=== PATIENT | female | born 1965 | race Caucasian/White ===

== ENCOUNTER → 2024-08-02 07:54 | Outpatient (AMB) | payer OTHER, SELFPAY ==
--- NOTE | 2024-08-02 08:14 | MHC.PC.OV ---
Vital Signs 08/02/24 08:20 Height 5 ft 6 in Weight 140 lb 6 oz BMI 22.7 BP 118/68 Blood Pressure Location Lt brachial Position Sitting Respiration 14 Pulse 82 Pulse Source Pulse Oximeter Pulse Oximetry (%) 99 Oxygen Delivery Method Room Air Intake Visit Reasons: est bladder infection Intake Note: bladder infection since yesterday morning. Allergies penicillin G Allergy (Verified 08/02/24 08:18) Hives Tobacco use date assessed: 08/02/24 Dental Screening Dental Screen Date: 08/02/24 Did you have a dental visit in the last 12 months?: Yes Did you have a dental problem in the last 6 months where you did not have access to dental care?: No Was dental information given to patient?: Patient has dentist [facility] Social History Housing: House Patient Tobacco Use Status: Never used Tobacco e-Cigarette/Vaping Use: Never Used service: No Cognitive needs: No Hearing needs: No Vision needs: No Coding
[2024-08-02 08:20] VITALS: BP 118/68; PULSE 82; RESP 14; O2SAT 99; BMI 22.7
--- NOTE | 2024-08-02 08:29 | AM.OFFWIN_ITS ---
Intake Vital Signs 08/02/24 08:20 Height 5 ft 6 in Weight 140 lb 6 oz BMI 22.7 BP 118/68 Blood Pressure Location Lt brachial Position Sitting Respiration 14 Pulse 82 Pulse Source Pulse Oximeter Pulse Oximetry (%) 99 Oxygen Delivery Method Room Air Intake Visit Reasons: est bladder infection Allergies penicillin G Allergy (Verified 08/02/24 08:30) Hives Medication List - Last Reconciled 08/02/24 by Laury Pedroza, TILT TRAY DRIVER- hydrochlorothiazide 50 mg PO DAILY losartan 25 mg PO DAILY metoprolol succinate ER 200 mg PO DAILY HPI HPI Comments History of Present Illness Details 59 F here today with concern for urinary tract infection. Her symptoms of dysuria, foul smelling urine, dysuria, frequency started yesterday. Reports that she was traveling when her symptoms initially started. However she just tried to ignore them and treat with cranberry juice without effect. She reports that her last urinary tract infection with several years ago. Otherwise she denies any fever, chills, nausea, vomiting. Exam Awake alert oriented, no acute distress Mucous membranes moist Regular rate and rhythm No CVAT bilat Positive suprapubic tenderness Plan Treat with Bactrim b.i.d. for 3 days. Advised to take with food to quell GI side effects. Liberally hydrate. Okay to use [id number] remedies to help with the irritation. Educated on return to office recommendations. This note is constructed using voice recognition software. While every effort has been made to ensure accuracy in automobile upholstery trim installer, still errors may have been included Sometimes, these errors may affect the content or meaning of the given sentence . Total time spent caring for the patient today was 30 minutes. This includes time spent before the visit reviewing the chart, time spent during the visit, and time spent after the visit on documentation Physical Exam Vital Signs: Last Vital Signs Pulse 82 08/02/24 08:20 Resp 14 08/02/24 08:20 BP 118/68 08/02/24 08:20 Pulse Ox 99 08/02/24 08:20 Oxygen Delivery Method Room Air 08/02/24 08:20 BMI result Body Mass Index 22.7 Results AMB Urinalysis Dipstick UR Leukocytes Large Last Edit by Earline Jennings CMA on 08/02/24 14:42 UR Nitrite Positive Last Edit by Earline Jennings CMA on 08/02/24 14:42 UR Urobilinogen Normal Last Edit by Earline Jennings CMA on 08/02/24 14:42 UR Protein Trace Last Edit by Earline Jennings CMA on 08/02/24 14:42 UR Ph 7.5 Last Edit by Earline Jennings CMA on 08/02/24 14:42 UR Blood Small Last Edit by Earline Jennings CMA on 08/02/24 14:42 UR Specific [place] 1.015 Last Edit by Earline Jennings CMA on 08/02/24 14: 42 UR Ketone Last Edit by Earline Jennings CMA on 08/02/24 14:42 UR Bilirubin Negative Last Edit by Earline Jennings CMA on 08/02/24 14:42 UR Glucose Negative Last Edit by Earline Jennings CMA on 08/02/24 14:42 Results Reviewed Results Reviewed: Laboratory Last Values Urine pH (Clinic) 7.5 08/02/24 14:37 Specific [place] (Clinic) 1.015 08/02/24 14:37 Ur Protein (Clinic) Trace 08/02/24 14:37 Urine Blood (Clinic) Small 08/02/24 14:37 Urine Nitrite Positive 08/02/24 14:37 Urine Bilirubin (Clinic) Negative 08/02/24 14:37 Urobilinogen (Clinic) Normal 08/02/24 14:37 Leukocyte Esterase (Clinic) Large 08/02/24 14:37 Urine Glucose (Clinic) Negative 08/02/24 14:37 Assessment & Plan Assessment & Plan (1) UTI (urinary tract infection): Code(s): N39.0 - Urinary tract infection, site not specified Qualifiers: Urinary tract infection type: acute cystitis Hematuria presence: with hematuria Qualified Code(s): N30.01 - Acute cystitis with hematuria Plan: . Orders: Orders AMB Urinalysis Dipstick Today R30.0 - Dysuria Medications: New sulfamethoxazole-trimethoprim 800-160 mg (Bactrim DS) 1 tab PO BID 6 tabs 0RF 3 days Coding Level of Care Code Est Pt Level 4 (50746) Diagnoses Acute cystitis with hematuria N30.01 Urinary tract infection type: acute cystitis Hematuria presence: with hematuria
== END ==
PROVIDERS: PCP Physician Assistant; Visit Provider Nurse Practitioner Family
DX: R30.0 Dysuria (principal); N30.01 Acute cystitis with hematuria
CPT/HCPCS: 81002; 99214

== ENCOUNTER 2024-08-06 08:00 | Outpatient (AMB) | payer OTHER, SELFPAY ==
--- NOTE | 2024-08-06 08:03 | AM.OFFWIN_ITS ---
Intake Vital Signs 08/06/24 08:11 Height 5 ft 6 in Weight 139 lb 2 oz BMI 22.5 BP 105/67 Blood Pressure Location Rt brachial Position Sitting Respiration 14 Pulse 98 Pulse Source Pulse Oximeter Temp 97.3 F Temp Source Oral Pulse Oximetry (%) 98 Oxygen Delivery Method Room Air Intake Visit Reasons: est/ uti getting worse meds not helping Intake Note: patient complaining of burning and painful when urinating also complaining of constant pain in lower abd and states meds given to her last friday are not helping. Allergies penicillin G Allergy (Verified 08/06/24 08:10) Hives Medication List - Last Reconciled 08/06/24 by Laury Pedroza, TICKET MANAGER- hydrochlorothiazide 50 mg PO DAILY losartan 25 mg PO DAILY metoprolol succinate ER 200 mg PO DAILY Do you need a note to return to daycare/school/sports/work: No HPI HPI Comments History of Present Illness Details 59 F here today with concerns that her u rinary tract infection is not resolved. She was seen in the office 07/30/2024 by myself. She was found to have a UTI was treated with Bactrim for 3 days. She reports that in the 1st 2 days of treatment her symptoms improved. She completed the course of therapy. The very next day she developed a worsening of symptoms. She reports that she has a spasm, contraction like sensation in her bladder, severe right flank pain. She denies any gross hematuria. She denies a personal history of renal stones. She has been liberally hydrated and feels that her symptoms are improved when her bladder is full. However when she empties her bladder symptoms are worse. She denies any nausea vomiting or fever. Exam Awake alert oriented, tearful, uncomfortable, holding R flank Mucous membranes moist Regular rate and rhythm + CVAT right Positive suprapubic tenderness, gaurded Plan Urine done today and shows blood, otherwise unremarkable and improved. The concern is for a renal stone. Check stat ultrasound imaging. Treat prophylactically with Levaquin, Zofran, Flomax and oxycodone for pain control. Educated about the need for liberal hydration and risk for tendon rupture the use of Levaquin. Also educated her on the risks associated with opiate use. I recommend that she follow up with the primary care provider in a week or 2 to ensure resolution. I will call her later with the results of the ultrasound. Return to the office emergency room education provided to her today. Pt called at 1345 w/ results. Negative US. Plan as above. This note is constructed using voice recognition software. While every effort has been made to ensure accuracy in fuel retrofitting technician, still errors may have been included Sometimes, these errors may affect the content or meaning of the given sentence . Total time spent caring for the patient today was 40 minutes. This includes time spent before the visit reviewing the chart, time spent during the visit, and time spent after the visit on documentatio Physical Exam Vital Signs: Last Vital Signs Temp 97.3 F 08/06/24 08:11 Pulse 98 08/06/24 08:11 Resp 14 08/06/24 08:11 BP 105/67 08/06/24 08:11 Pulse Ox 98 08/06/24 08:11 Oxygen Delivery Method Room Air 08/06/24 08:11 BMI result Body Mass Index 22.5 Results Reviewed Results Reviewed: [place] [address] Ultrasound Report Signed Patient: Farhana Blanca MR#: [id number] : 1965 Acct:[id number] Age/Sex: 59 / F ADM Date: 08/06/24 Loc: HO.US Attending Dr: Laury DRIVER Ordering Physician: Laury Pedroza Date of Service: 08/06/24 Procedure(s): US retroperitoneal comp Accession Number(s): [id number] cc: Stormy Harman; Laury Pedroza~ EXAMINATION: US RETROPERITONEAL COMPLETE (RENAL) CLINICAL INFORMATION: Hematuria, back pain. COMPARISON: None available. TECHNIQUE: Real-time imaging of the kidneys and bladder. FINDINGS: RIGHT KIDNEY: 11.2 x 5.7 x 5.4 cm (SAG x AP x TRV). The kidney is normal in size, contour, and echogenicity. Renal cortical thickness is normal. No calculi or focal parenchymal lesions. No hydronephrosis. LEFT KIDNEY: 10.7 x 5.3 x 5 cm (SAG x AP x TRV). The kidney is normal in size, contour, and echogenicity. Renal cortical thickness is normal. No calculi or focal parenchymal lesions. No hydronephrosis. BLADDER: Well distended and normal. Bilateral ureteral jets are demonstrated. Prevoid bladder volume is 451 mL. Postvoid bladder volume is 45 mL. US/US retroperitoneal comp IMPRESSION: No acute sonographic abnormalities. Electronically signed by: Amaya Nolen MD 08/06/2024 11:46 AM EDT Dictated By: Amaya Nolen Signed By: <Electronically signed by Amaya Nolen in OV> 08/06/24 1146 DD/ 1030 TD/TT: 08/06/24 1050 Electric Welder: Assessment & Plan Assessment & Plan (1) Right flank pain: Comment: . Code(s): R10.9 - Unspecified abdominal pain (2) Hematuria: Code(s): R31.9 - Hematuria, unspecified Qualifiers: Hematuria type: other microscopic Qualified Code(s): R31.29 - Other microscopic hematuria Plan: . Plan . Orders: Orders US bladder Today M54.9 - Dorsalgia, unspecified, R10.819 - Abdominal tenderness, unspecified site, R31.9 - Hematuria, unspecified Medications: New tamsulosin (Flomax) IN THE EVENING 0.4 mg PO DAILY 14 caps 0RF levofloxacin 500 mg PO DAILY 7 tabs 0RF oxycodone Partial Fill upon patient request. 5 mg PO TID PRN 9 tabs 0RF pain ondansetron HCl 4 mg PO Q8H 3 days PRN 15 tabs 0RF nausea and vomiting Coding Level of Care Code Est Pt Level 5 (07452) Diagnoses Right flank pain R10.9 Other microscopic hematuria R31.29 Hematuria type: other microscopic
[2024-08-06 08:11] VITALS: BP 105/67; PULSE 98; RESP 14; TEMP 36.3; O2SAT 98; BMI 22.5
== END 2024-08-06 08:29 | disposition home or self-care (01) ==
PROVIDERS: PCP Physician Assistant; Visit Provider Nurse Practitioner Family
DX: N30.01 Acute cystitis with hematuria (principal); R10.9 Unspecified abdominal pain
CPT/HCPCS: 81002; 99215

== ENCOUNTER 2024-08-06 10:14 | Outpatient (REF) | payer OTHER, SELFPAY ==
--- NOTE | ~2024-08-06 | US_ITS ---
EXAMINATION: US RETROPERITONEAL COMPLETE (RENAL) CLINICAL INFORMATION: Hematuria, back pain. COMPARISON: None available. TECHNIQUE: Real-time imaging of the kidneys and bladder. FINDINGS: RIGHT KIDNEY: 11.2 x 5.7 x 5.4 cm (SAG x AP x TRV). The kidney is normal in size, contour, and echogenicity. Renal cortical thickness is normal. No calculi or focal parenchymal lesions. No hydronephrosis. LEFT KIDNEY: 10.7 x 5.3 x 5 cm (SAG x AP x TRV). The kidney is normal in size, contour, and echogenicity. Renal cortical thickness is normal. No calculi or focal parenchymal lesions. No hydronephrosis. BLADDER: Well distended and normal. Bilateral ureteral jets are demonstrated. Prevoid bladder volume is 451 mL. Postvoid bladder volume is 45 mL. US/US retroperitoneal comp IMPRESSION: No acute sonographic abnormalities. Electronically signed by: Amaya Nolen MD 08/06/2024 11:46 AM EDT
== END 2024-08-06 10:15 | disposition home or self-care (01) ==
LOC: HO.US 10:14
PROVIDERS: PCP Physician Assistant; Visit Provider Nurse Practitioner Family
DX: M54.9 Dorsalgia, unspecified (principal); R10.819 Abdominal tenderness, unspecified site; R31.9 Hematuria, unspecified
CPT/HCPCS: 76770

== ENCOUNTER 2024-08-25 08:55 | Outpatient (AMB) | payer OTHER, SELFPAY ==
--- NOTE | 2024-08-25 09:10 | MHC.PC.OV ---
Vital Signs 08/25/24 09:15 Height 5 ft 6 in Weight 140 lb 8 oz BMI 22.7 BP 108/70 Blood Pressure Location Lt brachial Position Sitting Respiration 12 Pulse 68 Pulse Source Pulse Oximeter Pulse Oximetry (%) 98 Oxygen Delivery Method Room Air Intake Visit Reasons: Establish care Intake Note: New patient visit Network Systems Engineer Required: No Allergies penicillin G Allergy (Verified 08/25/24 09:11) Hives Medication List - Last Reconciled 08/25/24 by Stormy Harman PA-C [Co qu 10 .Route.] hydrochlorothiazide 50 mg PO DAILY losartan 25 mg PO DAILY metoprolol succinate ER 200 mg PO DAILY multivitamin 1 tab PO DAILY [probiotic .] [Tumeric .] Tobacco use date assessed: 08/25/24 Dental Screening Dental Screen Date: 08/25/24 Did you have a dental visit in the last 12 months?: Yes Did you have a dental problem in the last 6 months where you did not have access to dental care?: No Was dental information given to patient?: Patient has dentist HPI Establish care HPI Details Patient is a 59-year-old female with a significant past medical history of tachycardia, hypertension recurrent diverticulitis presenting today to reestablcritical access hospital care. She was last seen by myself on 02/10/2024. -Recently seen for a complicated UTI. She ended up with possible early pyelonephritis and treated with levaquin. Currently asymptomatic. Feeling a lot better. She states that she thinks she got the UTI her intercourse. CV: Blood pressure today in the office is 108/70. She is currently on hydrochlorothiazide 50 mg, losartan 25 mg and metoprolol 200 mg. No chest pain, shortness on breath or palpitations. She was referred at our last visit to Cardiology for the palpitations. GI: She was supposed to see GI for reoccurrence of diverticulitis but states that they never called her. Since 2018 she has had 3 flare-ups of diverticulitis but has had a colonoscopy in which they told her she had no signs of diverticulosis. She states that she is not sure why she gets his recurrent left lower quadrant abdominal pain. She says every time she has gone to the ER for this they have told her she has diverticulitis and she has had imaging. Colonoscopy: Up-to-date Mammogram: Up-to-date, follows at [facility] Bone density: Never had Pap: UTD< Getting a colposcopy tomorrow. [facility] Medical History (Updated 08/25/24 @ 09:38 by Stormy Harman PA-C) Adenoma of right breast Adenoma of left breast Hypertriglyceridemia HTN (hypertension) Diverticulitis Anxiety Family History (Updated 08/25/24 @ 09:49 by Earline Jennings CMA) Mother Dementia Father Diabetes Sister Breast cancer Diabetes Paternal Grandfather Colon cancer Maternal Aunt Breast cancer Diabetes Social History (Updated 08/25/24 @ 09:23 by Earline Jennings CMA) Housing: House Patient Tobacco Use Status: Former Tobacco user Years Smoked: 1 e-Cigarette/Vaping Use: Never Used Second Hand Smoke Exposure: No service: No Current occupational status: retired Cognitive needs: No Hearing needs: No Vision needs: No Questionnaire PHQ-9 Over the last 2 weeks, how often have you been bothered by any of the following problems? 1. Little interest or pleasure in doing things: not at all 2. Feeling down, depressed, or hopeless: not at all 3. Trouble falling or staying asleep, or sleeping too much: not at all 4. Feeling tired or having little energy: not at all 5. Poor appetite or overeating: not at all 6. Feeling bad about yourself - or that you are a failure or have let yourself or your family down: not at all 7. Trouble concentrating on things, such as reading the newspaper or watching television: not at all 8. Moving or speaking so slowly that other people could have noticed. Or the opposite - being so fidgety or restless that you have been moving around a lot more than usual: not at all 9. Thoughts that you would be better off or of hurting yourself in some way: not at all Total score: 0 Depression Screening Interpretation: Negative Depression Screening Done: Yes 45233 - PHQ-9 Billing: Yes Source: Developed by Drs. Ronaldo Varela, Betty Argueta, Rhett Lino and colleagues, with an educational milla from [employer]. Thrive Questionnaire Date Thrive assessed: 08/25/24 I am a: Patient What is your living situation today?: I have a steady place to live Within the past 12 months, did the food you bought not last and you didn't have the money to get more?: Never true Within the past 12 months, did you worry whether your food would run out before you got money to buy more?: Never true Do you have trouble paying for medicines?: No Do you have trouble getting transportation to medical appointments?: No Do you have trouble paying your heating and electricity bill?: No Do you have trouble taking care of your child, family member or friend?: No Do you have trouble with day-to-day activities such as bathing, preparing meals, shopping, managing finances, etc.?: No Are you currently unemployed and looking for a job?: No Are you interested in more education?: No Please select the resources that you would like help with: None Currently or been in a relationship where the following occur: No concerns reported THRIVE Score: 0 AUDIT C Alcohol Use Questionnaire (AUDIT-C) 1. How often do you have a drink containing alcohol?: 2-4 times a month 2. How many drinks containing alcohol do you have on a typical day when you are drinking?: 1 or 2 3. How often do you have six or more drinks on one occasion?: Never Total Score: 2 ANGELA-7 AMB Questionnaire ANGELA-7 Date ANGLEA - 7 assessed: 08/25/24 Feeling nervous, anxious, or on edge: 0 = Not at all Not being able to stop or control worryin = Not at all Worrying too much about different things: 0 = Not at all Trouble relaxin = Not at all Being so restless that it is hard to sit still: 0 = Not at all Becoming easily annoyed or irritable: 0 = Not at all Feeling afraid as if something awful might happen: 0 = Not at all Total ANGELA-7 score (0-4 normal; 5-9 mild; 10-14 moderate; 15-21 severe): 0 Source: Developed by Drs. Ronaldo Varela, Betty Argueta, Rhett Lino and colleagues, with an educational milla from [employer]. ANGELA-7 Assessment Billing ANGELA-7 Assessment Tool: ANGELA-7 Assessment 37115 Physical exam (Primary Care) Vital Signs: Last Vital Signs Pulse 68 08/25/24 09:15 Resp 12 08/25/24 09:15 BP 108/70 08/25/24 09:15 Pulse Ox 98 08/25/24 09:15 Oxygen Delivery Method Room Air 08/25/24 09:15 BMI result Body Mass Index 22.7 Tobacco/Smoking Status: Tobacco use Status Tobacco use date assessed 08/25/24 08/25/24 09:19 e-Cigarette/Vaping Use Never Used 08/25/24 09:23 Depression Screening Interpretation: Negative Thrive Assessment: Date of Thrive Assessment Date Thrive assessed 08/18/24 08/25/24 09:19 Currently or been in a relationship where the following occur: No concerns reported Const Orientation/consciousness: patient oriented x3 HENMT Ears: hearing grossly normal bilaterally Neck Thyroid: Thyroid normal Lymphatic: no lymphadenopathy noted Resp Auscultation: clear to auscultation bilaterally Cardio Rate: regular rate Rhythm: regular rhythm Heart sounds: S1 normal heart sound present and S2 normal heart sound present GI Inspection: Yes normal to inspection Palpation (GI): Soft to palpation and Other GI palpation findings present (nontender, no cva tenderness) Auscultation: normoactive bowel sounds Rectal Exam - Female: deferred Skin General skin exam: no rashes or lesions noted Neuro General: patient oriented x3, gait normal and no focal motor deficits Results Reviewed Results Reviewed: [facility] Physician: Laury Pedroza Date of Service: 08/06/24 Procedure(s): US retroperitoneal comp Accession Number(s): [id number] cc: Stormy Harman; Laury Pedroza~ EXAMINATION: US RETROPERITONEAL COMPLETE (RENAL) CLINICAL INFORMATION: Hematuria, back pain. COMPARISON: None available. TECHNIQUE: Real-time imaging of the kidneys and bladder. FINDINGS: RIGHT KIDNEY: 11.2 x 5.7 x 5.4 cm (SAG x AP x TRV). The kidney is normal in size, contour, and echogenicity. Renal cortical thickness is normal. No calculi or focal parenchymal lesions. No hydronephrosis. LEFT KIDNEY: 10.7 x 5.3 x 5 cm (SAG x AP x TRV). The kidney is normal in size, contour, and echogenicity. Renal cortical thickness is normal. No calculi or focal parenchymal lesions. No hydronephrosis. BLADDER: Well distended and normal. Bilateral ureteral jets are demonstrated. Prevoid bladder volume is 451 mL. Postvoid bladder volume is 45 mL. US/US retroperitoneal comp IMPRESSION: No acute sonographic abnormalities. Coding Level of Care Code Est Pt Level 4 (92736) Complex EM visit Add On G2211 Diagnoses Primary hypertension I10 Hypertension type: primary hypertension Tachycardia R00.0 Diverticulosis K57.90 Additional Codes ANGELA-7 Assessment Billing - ANGELA-7 Assessment Tool: ANGELA-7 Assessment [id number] ([id number]) Assessment & Plan Assessment & Plan (1) HTN (hypertension): Code(s): I10 - Essential (primary) hypertension Category: Medical Qualifiers: Hypertension type: primary hypertension Qualified Code(s): I10 - Essential (primary) hypertension Plan: wnl continue current treatment plan (2) Tachycardia: Code(s): R00.0 - Tachycardia, unspecified Category: Medical Plan: saw cardiology for this and states everything is normal . (3) Diverticulosis: Code(s): K57.90 - Diverticulosis of intestine, part unspecified, without perforation or abscess without bleeding Category: Medical Plan: abdominal exam benign. referral to GI Orders: Orders Comprehensive [place]. Panel Fast Today I10 - Essential (primary) hypertension, R00.0 - Tachycardia, unspecified, R31.29 - Other microscopic hematuria Lipid Panel Today I10 - Essential (primary) hypertension, R00.0 - Tachycardia, unspecified, R31.29 - Other microscopic hematuria UA CC w/rflx Micro + Cult Today I10 - Essential (primary) hypertension, R00.0 - Tachycardia, unspecified, R31.29 - Other microscopic hematuria, Z13.220 - Encounter for screening for lipoid disorders XR DEXA axial skeleton Today N95.1 - Menopausal and female climacteric states, Z13.820 - Encounter for screening for osteoporosis Complete Blood Count Auto Diff Today I10 - Essential (primary) hypertension, R00.0 - Tachycardia, unspecified, R31.29 - Other microscopic hematuria TSH reflex Free T4 Today I10 - Essential (primary) hypertension, R00.0 - Tachycardia, unspecified, R31.29 - Other microscopic hematuria Referrals Gastroenterology Referral K57.90 - Diverticulosis of intestine, part unspecified, without perforation or abscess without bleeding, R10.32 - Left lower quadrant pain
[2024-08-25 09:15] VITALS: BP 108/70; PULSE 68; RESP 12; O2SAT 98; BMI 22.7
== END 2024-08-25 09:50 | disposition home or self-care (01) ==
PROVIDERS: PCP Physician Assistant; Visit Provider Physician Assistant
DX: I10 Essential (primary) hypertension (principal); R00.0 Tachycardia, unspecified; K57.90 Diverticulosis of intestine, part unspecified, without perforation or abscess without bleeding

== ENCOUNTER → 2024-08-25 08:55 | Outpatient (BNVA) | payer OTHER, SELFPAY | PROVIDERS: PCP Physician Assistant; Visit Provider Physician Assistant | DX: I10 Essential (primary) hypertension (principal); R00.0 Tachycardia, unspecified; K57.90 Diverticulosis of intestine, part unspecified, without perforation or abscess without bleeding | CPT/HCPCS: 96127 ==

== ENCOUNTER 2024-08-25 09:55 | Outpatient (REF) | payer OTHER, SELFPAY ==
[2024-08-25 11:01] LABS: MANUAL DIFF FLAG NO
[2024-08-25 11:11] LABS: Appearance Urine Turbid; Color Urine Yellow; Glucose Urine UA Negative (Negative); Leukocyte Esterase Urine Negative (Negative); Nitrite Urine Negative (Negative); PH 8.5 (5.0-9.0); Specific Gravity - Urine 1.015 (1.005-1.025); Urine Blood Negative (Negative); Urine Ketones Negative (Negative); Urine Protein Negative (Neg-Trace)
[2024-08-25 11:12] LABS: Basophils Percent Auto 0.6 % (0-2); Eosinophils Absolute Auto 0.3 X10*3/uL (0.0-0.4); Eosinophils Percent Auto 4.4 % (0-4); Hematocrit 40.3 % (37.0-47.0); Hemoglobin 13.4 g/dl (12.0-16.0); Imm Gran Abs Auto 0.02 X10*3/uL (0.00-0.03); Imm Gran Pct Auto 0.3 % (0.0-0.4); Lymphocytes Absolute Auto 1.8 X10*3/uL (1.2-4.9); Lymphocytes Percent Auto 27.8 % (20-40); Mean Corpuscular HGB Conc 33.3 g/dl (31.0-35.0); Mean Corpuscular Hemoglobin 32.3 pg (27.0-33.0); Mean Corpuscular Volume 97.1 fL (80.0-98.0); Mean Platelet Volume 10.7 fL (9.4-12.3); Monocytes Absolute Auto 0.8 X10*3/uL (0.1-1.2); Monocytes Percent Auto 11.8 % (2-11); Neutrophils Absolute Auto 3.6 x10*3/uL (2.0-8.3); Neutrophils Percent Auto 55.1 % (45-73); Platelet Count 323 X10*3/uL (160-400); Red Blood Count 4.15 X10*6/uL (4.20-5.50); Red Cell Distribution Width 12.8 % (11.0-16.0); White Blood Count 6.6 X10*3/uL (4.8-10.8)
[2024-08-25 11:56] LABS: Alanine Aminotransferase 18 U/L (0-31); Albumin Level 4.4 g/dL (3.5-5.0); Alkaline Phosphatase 42 U/L (39-117); Anion Gap 13 (12-20); Aspartate Amino Transferase 23 U/L (5-31); Bilirubin Total 0.6 mg/dL (0.0-1.0); Blood Urea Nitrogen 11 mg/dL (9-16); Calcium 9.8 mg/dL (8.4-10.2); Carbon Dioxide 30 mmol/L (22-29); Chloride 100 mmol/L (96-108); Cholesterol 256 mg/dL (<200); Estimated Glomerular Filt Rate > 60; Glucose Fasting 101 mg/dL (60-99); HDL Cholesterol 88 mg/dL (>40); LDL Cholesterol Calculated 142 mg/dL (<100); Potassium 3.3 mmol/L (3.3-5.1); Sodium 140 mmol/L (135-145); Total Protein 7.6 g/dL (6.5-8.0); Triglycerides 132 mg/dL (<150)
[2024-08-25 12:03] LABS: TSH reflex Free T4 2.09 uIU/mL (0.32-4.0)
== END 2024-08-25 09:56 | disposition home or self-care (01) ==
LOC: HO.WFDLDS 09:55
PROVIDERS: Visit Provider Physician Assistant
DX: R31.29 Other microscopic hematuria (principal); I10 Essential (primary) hypertension; R00.0 Tachycardia, unspecified; Z13.220 Encounter for screening for lipoid disorders
CPT/HCPCS: 36415; 80053; 80061; 81003; 84443; 85025

== ENCOUNTER 2024-09-21 08:39 | Outpatient (REF) | payer OTHER, SELFPAY ==
--- NOTE | ~2024-09-21 | MM_ITS ---
EXAMINATION: BONE DENSITOMETRY CLINICAL INDICATION: Encounter for screening for osteoporosis. COMPARISON: This is the patient's baseline examination. TECHNIQUE: Using a [employer] DXA System (software version: 13.1) manufactured by [employer] dual-energy x-ray absorptiometry was performed of the lumbar spine and left hip. The images are of good technical quality. Summary results are attached. FINDINGS: LEFT FEMUR, NECK: BMD 0.871 g/cm2, Z-score 0.1, T-score -1.2, osteopenia. LEFT FEMUR, TOTAL: BMD 0.931 g/cm2, Z-score 0.4, T-score -0.6, normal. AP SPINE L1-L4: BMD 1.034 g/cm2, Z-score 0.1, T-score -1.2, osteopenia. IDENTIFIED RISK FACTORS: Height loss, menopause, thiazide. HISTORY OF FRACTURE: None listed. MEDICATIONS: Multivitamin. MM/XR DEXA axial skeleton IMPRESSION: 1. DIAGNOSIS: Osteopenia based on the lowest T-score value of -1.2 in the lumbar spine and femur neck applying World Health Organization criteria. 2. 10-YEAR FRACTURE RISK PREDICTION, FRAX: Major osteoporotic fracture (clinical spine, forearm, hip or shoulder) 7.1%. Hip fracture 0.5%. 3. Treatment Recommendations: NOF guidelines recommend consideration for treatment in postmenopausal women and men age 50 and older presenting with the following: -A hip or vertebral (clinical or morphometric) fracture. -T-score less than or equal to -2.5 at the femoral neck or spine after appropriate evaluation to exclude secondary causes. -Low bone mass at the hip or spine and a 10-year fracture probability by FRAX of greater than or equal to 3% for hip fracture or greater than or equal to 20% for major osteoporotic fracture based on the [place] adapted WHO algorithm. 4. Other Recommendations: All treatment decisions require clinical judgment and consideration of individual patient factors, including patient preferences, comorbidities, previous drug use, risk factors not captured in the FRAX model (e.g. frailty, falls, vitamin D deficiency, increased bone turnover, interval significant decline in bone density) and possible under or overestimation of fracture risk by FRAX. Additional medical evaluation for secondary cause of low bone mineral density may be appropriate. FUTURE SCAN RECOMMENDATION: People with diagnosed cases of osteoporosis or at high risk for fracture should have regular bone mineral density tests. For patients eligible for Medicare, routine testing is allowed once every 2 years. The testing frequency can be increased to one year for patients who have rapidly progressing disease, those who are receiving or discontinuing medical therapy to restore bone mass, or have additional risk factors. Electronically signed by: Sowmya Be MD 09/22/2024 09:50 AM EDT RP
== END 2024-09-21 08:40 | disposition home or self-care (01) ==
LOC: HO.MAMMO 08:39
PROVIDERS: PCP Physician Assistant; Visit Provider Physician Assistant
DX: N95.1 Menopausal and female climacteric states (principal); Z13.820 Encounter for screening for osteoporosis
CPT/HCPCS: 77080

== ENCOUNTER 2025-01-18 11:46 | Outpatient (AMB) | payer OTHER, SELFPAY ==
--- NOTE | 2025-01-18 11:51 | A.OFFVIS_ITS ---
Vital Signs 01/18/25 11:52 Height 5 ft 6 in Weight 145 lb 15.136 oz BMI 23.6 BP 118/78 Blood Pressure Location Rt brachial Position Sitting Pulse 78 Pulse Source Pulse Oximeter Pulse Oximetry (%) 98 Oxygen Delivery Method Room Air Intake Visit Reasons: Diverticulosis of intestine Intake Note: NEW PATIENT for initial eval of diverticulitis. Hx of multiple episodes since 2018. Prior hx of colo/egd? ~3 years ago. [facility]. 2 lifetime. Chief Complaint; C/O multiple diverticulitis episodes ddx by ED and PCP since 2018. Pt reports being asymptomatic currently but has intermittent bloating, LLQ pain, and diarrhea upon having episodes. Very rapid and severe onset when experienced per pt. Pt denies any additional concerns at this time. Credit Card Clerk Required: No Accompanied by: Self / Same As Patient Allergies penicillin G Allergy (Verified 01/18/25 11:52) Hives HPI HPI Diverticulosis of intestine: Details: 59-year-old? female with past medical history of dyslipidemia, hypertension, tachycardia, hematuria, diverticulosis, history of diverticulitis, last episode in 2022 is here today for pre colonoscopy screening.? Patient was sent to us by her PCP.? Last colonoscopy was in 2019. No mentioned of polyps or diverticulosis on the report. Patient had last episode of diverticulitis in 2022 where she was seen at [facility] ED. CT scan mentions mild diverticulitis and diverticulosis. Patient reports that currently she is going to the bathroom well daily. She is taking fiber supplements. In the past patient admits of having trouble moving her bowels and being constipated for few days prior to one of the episodes of diverticulitis. Patient reports being hospitalized one time.? Patient reports that she had vaginal repair after one of her childbirths and currently developed anal pocket and reports that her stool get stuck every time she has a bowel movement and she has to manually remove it. Denies any personal or family history of gastrointestinal disease, colon polyps, or CRC.? Denies history of difficulty with sedation or anesthesia in the past.? Negative for history of sleep apnea.? Denies any history of cardiac, renal, pulmonary, or hepatic disease.?? No history of infectious? diseases like hepatitis A, B, C, HIV or tuberculosis.? Patient is not on any anticoagulation Records from [facility] reviewed [facility] Medical History Adenoma of right breast Adenoma of left breast Hypertriglyceridemia HTN (hypertension) Diverticulitis Anxiety Family History Mother Dementia Father Diabetes Sister Breast cancer Diabetes Paternal Grandfather Colon cancer Maternal Aunt Breast cancer Diabetes Social History Housing: House Patient Tobacco Use Status: Former Tobacco user Years Smoked: 1 e-Cigarette/Vaping Use: Never Used Second Hand Smoke Exposure: No service: No Current occupational status: retired Cognitive needs: No Hearing needs: No Vision needs: No Review of Systems Const Denies weight gain and Denies weight loss ENT Reports no additional complaints, Denies dysphagia and Denies odynophagia Card Reports no additional complaints Resp Reports no additional complaints GI Denies abdominal pain, Denies belching, Denies melena, Denies bloating, Denies change in bowel habits, Denies dysphagia, Denies excessive flatus, Denies dyspepsia, Denies heartburn, Denies diarrhea, Denies loose stools, Denies nausea, Denies odynophagia and Denies vomiting Musc Reports no additional complaints Neuro Reports no additional complaints Psych Reports no additional complaints Endo Reports no additional complaints Physical Exam Const General: healthy appearing, no acute distress and well developed Nutritional Appearance: well nourished Orientation/consciousness: patient oriented x3 Resp Effort & Inspection: normal respiratory effort, able to speak in complete sentences, no tracheal deviation and symmetric chest movement Auscultation: clear to auscultation bilaterally Cardio Rate: regular rate GI Inspection: Yes normal to inspection and No distended Palpation (GI): Soft to palpation, not firm, nontender and No hepatosplenomegaly present Auscultation: normal bowel sounds General: Yes no CVA tenderness Back/Spine/Pelvis Back: no CVA tenderness Skin General skin exam: elasticity normal, turgor normal and dry skin Neuro General: patient oriented x3 Psych Appearance: grossly normal Mental Status: mental status grossly normal Assessment & Plan Assessment & Plan (1) Diverticulosis: Code(s): K57.90 - Diverticulosis of intestine, part unspecified, without perforation or abscess without bleeding Category: Medical (2) History of diverticulitis of colon: Code(s): Z87.19 - Personal history of other diseases of the digestive system Plan Patient denies any GI, cardiac or respiratory symptoms.? History of diverticulitis in the past. Patient reports that her provider who did last colonoscopy told her that he did not see any diverticulosis. Three years after her colonoscopy patient was seen in the ED CT scan showed mild diverticulosis with diverticulitis. Patient will be sent for colonoscopy to re-evaluate. Long discussion with patient about fiber therapy. Patient admits that she was constipated before her episodes of diverticulitis. Currently patient is taking fiber every morning. Moves her bowels daily. Discuss fiber therapy with pre and probiotics. Denies any issues with anesthesia in the past.? Denies any history of sleep apnea.? No history infectious diseases in the past or present.? Not on any anticoagulation therapy.? No family or personal history of colon cancer or polyps.? Patient denies melena, hematochezia, unintentional weight loss or ribbon like stools.? Discussed at length the pre-procedure,? prep, diet & medications as well as what to expect prior, during and after the procedure.?? Stressed the importance of good bowel prep.? Recommended the use of Vaseline or Calmoseptine OTC & baby wipes with bowel movements to promote comfort.? ?Patient verbalizes understanding and agrees to plan of care.? She was given the opportunity to ask questions and all questions answered.? We will see her after the procedure.? Medications: New bisacodyl (Dulcolax (bisacodyl)) take 4 tabs at noon the day before your colonoscopy 20 mg (4 x 5 mg) PO ONCE 1 day 4 tabs 0RF Z12.11 - Encounter for screening for malignant neoplasm of colon polyethylene glycol 3350 (Miralax) As directed by gastroenterology department at [facility] 238 grams PO ONCE 238 grams 0RF Z12.11 - Encounter for screening for malignant neoplasm of colon hydrocortisone 2.5% (Proctosol HC) 1 appl VT BID-QID PRN 30 grams 2RF hemorrhoids K64.9 - Unspecified hemorrhoids Coding Level of Care Code New Pt Level 3 (03775) Diagnoses Diverticulosis K57.90 History of diverticulitis of colon Z87.19 Time Spent (min) 45 Comment 30 minutes spent with patient and additional 1 minutes spent reviewing her records
[2025-01-18 11:52] VITALS: BP 118/78; PULSE 78; O2SAT 98; BMI 23.6
== END 2025-01-18 13:00 | disposition home or self-care (01) ==
PROVIDERS: PCP Physician Assistant; Visit Provider Nurse Practitioner Family
DX: K57.90 Diverticulosis of intestine, part unspecified, without perforation or abscess without bleeding (principal); Z87.19 Personal history of other diseases of the digestive system
CPT/HCPCS: 99203

== ENCOUNTER → 2025-01-18 11:46 | Outpatient (BNVA) | payer OTHER, SELFPAY | PROVIDERS: PCP Physician Assistant; Visit Provider Nurse Practitioner Family ==

== ENCOUNTER 2025-02-18 10:28 | Outpatient (REF) | payer OTHER, SELFPAY ==
[2025-02-18 12:03] LABS: Estimated Average Glucose 105 mg/dL; Hemoglobin A1c % 5.3 % (<6.0); Total Hemoglobin (HGBA1C) 3527.0341 umol/L
[2025-02-18 12:05] LABS: Anion Gap 13 (12-20); Blood Urea Nitrogen 16 mg/dL (9-16); Calcium 9.6 mg/dL (8.4-10.2); Carbon Dioxide 30 mmol/L (22-29); Chloride 102 mmol/L (96-108); Cholesterol 226 mg/dL (<200); Estimated Glomerular Filt Rate > 60; Glucose Random 88 mg/dL (60-115); HDL Cholesterol 84 mg/dL (>40); LDL Cholesterol Calculated 126 mg/dL (<100); Potassium 3.7 mmol/L (3.3-5.1); Sodium 141 mmol/L (135-145); Triglycerides 81 mg/dL (<150)
== END 2025-02-18 10:29 | disposition home or self-care (01) ==
LOC: HO.WFDLDS 10:28
PROVIDERS: Visit Provider Physician Assistant
DX: E78.5 Hyperlipidemia, unspecified (principal); R73.01 Impaired fasting glucose
CPT/HCPCS: 36415; 80048; 80061; 83036

== ENCOUNTER 2025-02-23 08:03 | Outpatient (AMB) | payer OTHER, SELFPAY ==
--- NOTE | 2025-02-23 08:07 | MHC.PC.OV ---
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 CV: Blood pressure today in the office is 118/78. She is currently on hydrochlorothiazide 50 mg, losartan 25 mg and metoprolol 200 mg. No chest pain, shortness on breath or palpitations. She was referred at our last visit to Cardiology for the palpitations and states work up was normal. She has not had any palpitations since better controlling bp. GI: Since 2018 she has had 3 flare-ups of diverticulitis but has had a colonoscopy in which they told her she had no signs of diverticulosis. She saw Gi and is booked next month for a colonoscopy. Eats very healthy, retired recently and she is doing most of the cooking. She is very active and goes to the gym regularly. Colonoscopy: Up-to-date- scheduled for next month Mammogram: Up-to-date 2023, follows at [facility] Bone density: UTD, 2023- osteopenia Pap: UTD, 2023 Derm: Follows with Dr. Thurman office every 6 months for skin checks [facility] Medical History Adenoma of right breast Adenoma of left breast Hypertriglyceridemia HTN (hypertension) Diverticulitis Anxiety Family History Mother Dementia Father Diabetes Sister Breast cancer Diabetes Paternal Grandfather Colon cancer Maternal Aunt Breast cancer Diabetes Social History Housing: House Alcohol intake: current Patient Tobacco Use Status: Former Tobacco user Years Smoked: 1 e-Cigarette/Vaping Use: Never Used Second Hand Smoke Exposure: No service: No Current occupational status: retired Cognitive needs: No Hearing needs: No Vision needs: No Questionnaire PHQ-9 Over the last 2 weeks, how often have you been bothered by any of the following problems? 1. Little interest or pleasure in doing things: not at all 2. Feeling down, depressed, or hopeless: not at all 3. Trouble falling or staying asleep, or sleeping too much: not at all 4. Feeling tired or having little energy: not at all 5. Poor appetite or overeating: not at all 6. Feeling bad about yourself - or that you are a failure or have let yourself or your family down: not at all 7. Trouble concentrating on things, such as reading the newspaper or watching television: not at all 8. Moving or speaking so slowly that other people could have noticed. Or the opposite - being so fidgety or restless that you have been moving around a lot more than usual: not at all 9. Thoughts that you would be better off or of hurting yourself in some way: not at all Total score: 0 Depression Screening Interpretation: Negative Depression Screening Done: Yes 88102 - PHQ-9 Billing: Yes Source: Developed by Drs. Ronaldo Varela, Betty Argueta, Rhett Lino and colleagues, with an educational milla from [employer]. Thrive Questionnaire Date Thrive assessed: 02/23/25 I am a: Patient What is your living situation today?: I have a steady place to live Within the past 12 months, did the food you bought not last and you didn't have the money to get more?: Never true Within the past 12 months, did you worry whether your food would run out before you got money to buy more?: Never true Do you have trouble paying for medicines?: No Do you have trouble getting transportation to medical appointments?: No Do you have trouble paying your heating and electricity bill?: No Do you have trouble taking care of your child, family member or friend?: No Do you have trouble with day-to-day activities such as bathing, preparing meals, shopping, managing finances, etc.?: No Are you currently unemployed and looking for a job?: No Are you interested in more education?: No Please select the resources that you would like help with: None Currently or been in a relationship where the following occur: No concerns reported THRIVE Score: 0 AUDIT C Alcohol Use Questionnaire (AUDIT-C) 1. How often do you have a drink containing alcohol?: 2-3 times a week 2. How many drinks containing alcohol do you have on a typical day when you are drinking?: 1 or 2 3. How often do you have six or more drinks on one occasion?: Never Total Score: 3 Score Reviewed/Action Taken: Yes ANGELA-7 AMB Questionnaire ANGELA-7 Date ANGELA - 7 assessed: 02/23/25 Feeling nervous, anxious, or on edge: 0 = Not at all Not being able to stop or control worryin = Not at all Worrying too much about different things: 0 = Not at all Trouble relaxin = Not at all Being so restless that it is hard to sit still: 0 = Not at all Becoming easily annoyed or irritable: 0 = Not at all Feeling afraid as if something awful might happen: 0 = Not at all Total ANGELA-7 score (0-4 normal; 5-9 mild; 10-14 moderate; 15-21 severe): 0 Source: Developed by Drs. Ronaldo Varela, Betty Argueta, Rhett Lino and colleagues, with an educational milla from [employer]. ANGELA-7 Assessment Billing ANGELA-7 Assessment Tool: ANGELA-7 Assessment 29560 Physical exam (Primary Care) Tobacco/Smoking Status: Tobacco use Status Tobacco use date assessed 08/25/24 08/25/24 09:19 Patient Tobacco Use Status Former Tobacco user 08/25/24 09:49 e-Cigarette/Vaping Use Never Used 08/25/24 09:23 Depression Screening Interpretation: Negative Thrive Assessment: Date of Thrive Assessment Date Thrive assessed 02/16/25 02/16/25 14:41 Currently or been in a relationship where the following occur: No concerns reported Const Orientation/consciousness: patient oriented x3 HENMT Ears: hearing grossly normal bilaterally and TM's normal bilaterally General nose exam: No nasal polyps present Face and sinus: Yes sinuses nontender Mouth: Normal oral and palatal mucosa present Eyes Pupils: Equal, round and reactive pupils present EOM: EOMs intact bilaterally Neck Neck: Yes full ROM and Yes no lymphadenopathy Thyroid: Thyroid normal Chest Chest palpation & inspection: normal inspection of the chest Resp Auscultation: clear to auscultation bilaterally Cardio Rate: regular rate Rhythm: regular rhythm Heart sounds: S1 normal heart sound present and S2 normal heart sound present Peripheral pulses: Peripheral pulses 2+ throughout GI Other: Soft, nontender Auscultation: normal bowel sounds Rectal Exam - Female: deferred General: Yes no CVA tenderness Back/Spine/Pelvis Other: Nontender Back: no CVA tenderness Skin General skin exam: no rashes or lesions noted Neuro General: patient oriented x3, gait normal, CN's II-XI intact bilaterally and deep tendon reflexes 2+ bilaterally Cranial nerves: Yes Equal, round and reactive pupils present Motor exam (neuro): 5/5 motor strength present throughout Sensory Exam: double simultaneous stimulation for sensation normal Coordination: [id number] test normal and Romberg test negative Extrem General: Yes normal to inspection and Yes full ROM Psych Affect: normal affect Attitude: cooperative Thought process: Normal thought process present Thought content: Normal thought content present Insight: Good insight present (Psych) Judgement: Good judgement present (Psych) Results Reviewed Results Reviewed: Laboratory Tests 08/25/24 02/18/25 09:56 10:30 WBC 6.6 RBC 4.15 L Hgb 13.4 Hct 40.3 Plt Count 323 Sodium 141 Potassium 3.7 Chloride 102 Carbon Dioxide 30 H Anion Gap 13 BUN 16 Creatinine 0.69 Estimated GFR > 60 Random Glucose 88 Estimat Average Glucose 105 Hemoglobin A1c % 5.3 Calcium 9.6 Triglycerides 81 Cholesterol 226 H LDL Cholesterol, Calc 126 H HDL Cholesterol 84 MM/XR DEXA axial skeleton IMPRESSION: 1. DIAGNOSIS: Osteopenia based on the lowest T-score value of -1.2 in the lumbar spine and femur neck applying World Health Organization criteria. Coding Level of Care Code Est Pt Prev Care 40-64y(16783) Diagnoses Routine general medical examination at a health care facility Z00.00 Primary hypertension I10 Hypertension type: primary hypertension Dyslipidemia E78.5 Additional Codes PHQ-9 - 12100 - PHQ-9 Billing: Yes ([id number]) ANGELA-7 Assessment Billing - ANGELA-7 Assessment Tool: ANGELA-7 Assessment 29297 ([id number]) Assessment & Plan Assessment & Plan (1) Routine general medical examination at a health care facility: Code(s): Z00.00 - Encounter for general adult medical examination without abnormal findings Plan: Health maintenance reviewed. Labs reviewed. (2) HTN (hypertension): Code(s): I10 - Essential (primary) hypertension Category: Medical Qualifiers: Hypertension type: primary hypertension Qualified Code(s): I10 - Essential (primary) hypertension Plan: WNL. Continue current regimen (3) Dyslipidemia: Code(s): E78.5 - Hyperlipidemia, unspecified Category: Medical Plan: diet controlled.
[2025-02-23 08:15] VITALS: BP 126/84; PULSE 69; RESP 12; O2SAT 99; BMI 23.4
== END 2025-02-23 11:34 | disposition home or self-care (01) ==
LOC: HO.HMCFM 08:04
PROVIDERS: PCP Physician Assistant; Visit Provider Physician Assistant
DX: Z00.00 Encounter for general adult medical examination without abnormal findings (principal); I10 Essential (primary) hypertension; E78.5 Hyperlipidemia, unspecified

== ENCOUNTER → 2025-02-23 08:03 | Outpatient (BNVA) | payer OTHER, SELFPAY | PROVIDERS: PCP Physician Assistant; Visit Provider Physician Assistant | DX: Z00.00 Encounter for general adult medical examination without abnormal findings (principal); I10 Essential (primary) hypertension; E78.5 Hyperlipidemia, unspecified | CPT/HCPCS: 96127 ==

== ENCOUNTER 2025-04-12 06:20 | Day surgery (SDC) | payer OTHER, SELFPAY ==
[2025-04-08 13:55] VITALS: BMI 23.4
--- NOTE | 2025-04-12 06:34 | MHC.SHP ---
Pre-Procedural Eval Section A - 24 Hr Update-Section A only Date of Service: 04/12/25 Section B - Complete if H&P > 30 days Chief Complaint: Diverticulitis of intestine, part unspecified, Relevant Family History (Specify if Yes): No Relevant Social History: None Present Medications: see Short Stay Collaborative assessment Medical History: Significant History (Adenoma of right breast Adenoma of left breast Hypertriglyceridemia HTN (hypertension) Diverticulitis Anxiety) History of Previous Operations: Relevant previous surgery/procedure and date(s) (colonoscopy) Allergies: Allergies Allergy/AdvReac Type Severity Reaction Status Date / Time penicillin G Allergy Hives Verified 04/12/25 06:31 Review of Systems Sugical H&P ROS: Negative: Constitution, Cardiovascular, Respiratory, Neurological, Psychiatric, Hem-Onc, Allergic/Immunologic, Gastrointestinal, Genitourinary, Musculoskeletal, Integumentary, Endocrine and Eyes/Ears/Nose/Throat Exam Surgical H&P Exam: Normal: HEENT, Normal: Heart, Normal: Lungs, Normal: Extremities, Normal: Abdomen, Normal: Skin and Normal: Neurological Plan Diagnosis/Plan: Unchanged I have reviewed the history and physical and performed a pertinent physical examination on my patient. No changes have occurred unless specified. Time Spent With Patient Time: Total time managing care of this patient today ____ minutes.
[2025-04-12 06:43] VITALS: BMI 22.8
[2025-04-12] MEDS: Lactated Ringers 1,000 ML 100 ML IVCONT (06:49)
[2025-04-12 06:56] VITALS: BP 144/96; PULSE 100; RESP 18; TEMP 36.8; O2SAT 99
--- NOTE | 2025-04-12 07:41 | HO.ANESPROP2 ---
Documented by User: Sheri Mooney NP 04/11/25 12:43 HPI - Anesthesia Eval Consult details Narrative: 59yo F for Colonoscopy PMFSH Active Problems Active Problems: All Active Problems IFG (impaired fasting glucose) (Acute) Dyslipidemia (Acute) Recurrent left lower quadrant abdominal pain (Acute) Diverticulosis (Acute) Tachycardia (Acute) HTN (hypertension) (Acute) Hematuria (Acute) Past Medical History Medical History Adenoma of right breast Adenoma of left breast Hypertriglyceridemia HTN (hypertension) Diverticulitis Anxiety Family History Family History Mother Dementia Father Diabetes Sister Breast cancer Diabetes Paternal Grandfather Colon cancer Maternal Aunt Breast cancer Diabetes Surgical History Surgical History (Updated 04/12/25 @ 06:44 by Sharon Miner RN) Hx of colonoscopy Social History Social History (Updated 02/23/25 @ 08:18 by Earline Jennings CMA) Household Members Other:: granddaughter Housing: House Are you a primary patient centered care specialist to a significant other at home: No Do you presently have visiting nurse or other home services: No Alcohol intake: current Patient Tobacco Use Status: Former Tobacco user Years Smoked: 1 e-Cigarette/Vaping Use: Never Used Second Hand Smoke Exposure: No Have you been hit, kicked, punched, or otherwise hurt by someone within the past year? If so, by whom?: No Are you DNR?: No Advance Directives: No Advance Directives Information Provided: Yes Poor oral hygiene: No service: No Current occupational status: retired Cognitive needs: No Hearing needs: No Vision needs: No Meds Allergies Allergy/AdvReac Type Severity Reaction Status Date / Time penicillin G Allergy Hives Verified 04/12/25 06:44 Home Medications ?Medication ?Instructions ?Recorded ?Confirmed ?Last Taken ?Type Co qu 10 .Route 08/25/24 08/25/24 Unknown History Tumeric PO 08/25/24 08/25/24 Unknown History multivitamin 1 tab PO DAILY 08/25/24 04/12/25 Unknown History probiotic .Route 08/25/24 08/25/24 Unknown History Exam Height,Weight and Vital Signs: Height 5 ft 6 in Weight 65.771 kg Assessment and Plan Assessment Anesthesia Assessment: Chart Reviewed Documented by User: Ana Luisa Merino DO 04/12/25 07:44 [facility] Past Medical History Medical History Adenoma of right breast Adenoma of left breast Hypertriglyceridemia HTN (hypertension) Diverticulitis Anxiety Family History Family History Mother Dementia Father Diabetes Sister Breast cancer Diabetes Paternal Grandfather Colon cancer Maternal Aunt Breast cancer Diabetes Family history of problems with anesthesia: No Surgical History Surgical History (Updated 04/12/25 @ 06:44 by Sharon Miner RN) Hx of colonoscopy History of Problems with Anesthesia: No Social History Social History (Updated 02/23/25 @ 08:18 by Earline Jennings CMA) Household Members Other:: granddaughter Housing: House Are you a primary patient centered care specialist to a significant other at home: No Do you presently have visiting nurse or other home services: No Alcohol intake: current Patient Tobacco Use Status: Former Tobacco user Years Smoked: 1 e-Cigarette/Vaping Use: Never Used Second Hand Smoke Exposure: No Have you been hit, kicked, punched, or otherwise hurt by someone within the past year? If so, by whom?: No Are you DNR?: No Advance Directives: No Advance Directives Information Provided: Yes Poor oral hygiene: No service: No Current occupational status: retired Cognitive needs: No Hearing needs: No Vision needs: No Meds Allergies Allergy/AdvReac Type Severity Reaction Status Date / Time penicillin G Allergy Hives Verified 04/12/25 06:44 Home Medications ?Medication ?Instructions ?Recorded ?Confirmed ?Last Taken ?Type Co qu 10 .Route 08/25/24 08/25/24 Unknown History Tumeric PO 08/25/24 08/25/24 Unknown History multivitamin 1 tab PO DAILY 08/25/24 04/12/25 Unknown History probiotic .Route 08/25/24 08/25/24 Unknown History Exam Exam Date and Time: 04/12/25 0730 Height,Weight and Vital Signs: Height 5 ft 6 in Weight 65.771 kg Vital Signs Temperature 98.2 F 04/12/25 06:56 Pulse Rate 100 04/12/25 06:56 Respiratory Rate 18 04/12/25 06:56 Blood Pressure 144/96 H 04/12/25 06:56 Pulse Oximetry 99 04/12/25 06:56 Oxygen Delivery Method Room Air 04/12/25 06:56 Temperature 98.2 F 04/12/25 06:56 Pulse Rate 100 04/12/25 06:56 Respiratory Rate 18 04/12/25 06:56 Blood Pressure 144/96 H 04/12/25 06:56 Pulse Oximetry 99 04/12/25 06:56 Oxygen Delivery Method Room Air 04/12/25 06:56 Airway Mallampati Class: I TM Dist: >3cm Neck ROM: Full Loose/Missing/Broken Teeth: No (patient denies any loose or broken teeth) Heart: S1S2 Lungs: CTAB Assessment and Plan Assessment Anesthesia Assessment: Anesthesia Plan Discussed and Chart Reviewed Final Anesthetic Review Family History of Problems with Anesthesia: No History of Problems with Anesthesia: No NPO: Yes ASA Class: II Final Preanesthetic Review: No Changes in Pt Med Stat, Meds/Allgs Chart Reviewed, Consent Obtained/Reviewed and Anes Risks/Benef Reviewed Patient Risk: Low Procedure Risk: Low Anesthetic Plan Anesthetic Plan: MAC: and Agree w/ Assess. and Plan Disposition: Standard PACU
--- NOTE | 2025-04-12 08:00 | HO.OPN-COLON ---
Colonoscopy Operative Note Operative Note Date of Service: 04/12/25 Narrative: Operative Information Procedure Description: Colonoscopy Indication: screening Anesthesia: MAC COLONOSCOPY Instrument: Olympus variable stiffness pediatric scope 190L Colonoscopy Monitoring: Vital signs and clinical assessment, continuous EKG monitoring, Pulse oximetry, Carbon Dioxide monitoring and blood pressure monitoring were done throughout the procedure. Colon withdrawal time was 6 minutes. Procedure: The patient was placed in the left lateral decubitis position and pre-procedure medications were administered. After a digital rectal examination of the ano-rectum, the video colonoscope was inserted into the rectum and advanced through the colon to the cecum/TI. The colonoscope was slowly withdrawn in a retrograde panoramic fashion and the colon mucosa was carefully examined including a retroflexed view of the rectum. Findings and interventions are described below. Procedure Difficulty: easy Findings: Terminal Ileum-normal Cecum:normal right sided retroflexion- normal Ascending Colon: normal Transverse Colon -normal Descending Colon:normal Sigmoid Colon: moderate diverticulosis Rectum: Retroflexion with small internal hemorrhoids seen, grade I Anorectum - normal Intervention: none Colon preparation: [place] Bowel Preparation Scale Right colon; 3 Transverse colon: 3 Left colon; 3 (0 = Unprepared colon segment with mucosa not seen due to solid stool that cannot be cleared. 1 = Portion of mucosa of the colon segment seen, but other areas of the colon segment not well seen due to staining, residual stool and/or opaque liquid. 2 = Minor amount of residual staining, small fragments of stool and/or opaque liquid, but mucosa of colon segment seen well. 3 = Entire mucosa of colon segment seen well with no residual staining, small fragments of stool or opaque liquid) Impression and Post Procedure Diagnosis: diverticulosis internal hemorrhoids Plan: High fiber diet leaflet Avoid straining at stool, epsom salts and sitz bath, anusol supps or cream Repeat Colonoscopy in 10 years or earlier if clinically indicated Above findings were reviewed with the patient and relevant handouts were provided if indicated.
[2025-04-12 08:04] VITALS: BP 117/77; PULSE 104; RESP 14; TEMP 36.6; O2SAT 99
[2025-04-12 08:19] VITALS: BP 131/80; PULSE 99; RESP 16; TEMP 36.6; O2SAT 96
== END 2025-04-12 08:39 | disposition home or self-care (01) ==
PROVIDERS: PCP Physician Assistant; Visit Provider Internal Medicine Gastroenterology
PROC: 0DJD8ZZ Inspection of Lower Intestinal Tract, Via Natural or Artificial Opening Endoscopic (ICD-10-PCS; CPT 45378; principal; 2025-04-12 07:30)
DX: Z12.11 Encounter for screening for malignant neoplasm of colon (principal); K57.30 Diverticulosis of large intestine without perforation or abscess without bleeding; K64.0 First degree hemorrhoids; Z87.19 Personal history of other diseases of the digestive system; R14.0 Abdominal distension (gaseous); I10 Essential (primary) hypertension; F41.9 Anxiety disorder, unspecified
CPT/HCPCS: 45378; J2003; J2704

== ENCOUNTER → 2025-04-12 06:20 | Outpatient (BNV) | payer OTHER, SELFPAY | PROVIDERS: PCP Physician Assistant; Visit Provider Internal Medicine Gastroenterology | DX: Z12.11 Encounter for screening for malignant neoplasm of colon (principal); K57.90 Diverticulosis of intestine, part unspecified, without perforation or abscess without bleeding; K64.8 Other hemorrhoids | CPT/HCPCS: 45378 ==